=== PATIENT | male | born 1970 | race Caucasian/White ===

== ENCOUNTER 2017-08-02 08:36 | Emergency (ER) | payer OTHER ==
--- NOTE | 2017-08-02 08:55 | ED Physician Documentation ---
PD HPI BACK INJURY - Stated complaint Stated Complaint: BACK PX - History obtained from History obtained from: Patient - History of Present Illness Location: Right, Both Type of injury: Twist. No: Fall, Blunt / blow Where injury occurred: Work Timing - onset: How many days ago (4) Timing - duration: Days (4) Timing - details: Abrupt onset, Still present, Waxing and waning (had onset of lumbar area pain with ROM after just twisting some. No fall/impact. Had had similar in May without notable injury (stood up and turned) that took 1-2 weeks to improve. Was doing okay and recurred just the few days ago.) Quality: Pain, Spasm Worsened by: Moving, Palpating (right low back) Associated symptoms: No: Fever, Weakness, Numbness, Incontinent of urine Contributing factors: No: Anticoagulated, Prior back surgery Similar symptoms before: No diagnosis Review of Systems Constitutional: denies: Fever, Chills Nose: denies: Rhinorrhea / runny nose, Congestion Throat: denies: Sore throat Respiratory: denies: Cough GI: denies: Abdominal Pain, Nausea, Vomiting, Diarrhea : denies: Dysuria, Frequency, Incontinent, Hematuria Skin: denies: Rash, Lesions Neurologic: denies: Focal weakness, Numbness PD PAST MEDICAL HISTORY - Past Medical History Past Medical History: Yes Cardiovascular: Hypertension Neuro: Headache/migraine Endocrine/Autoimmune: Type 2 diabetes Musculoskeletal: Osteoarthritis - Past Surgical History Past Surgical History: Yes Ortho: Other - Present Medications Home Medications: Ambulatory Orders Medication Instructions Recorded Confirmed Amitriptyline [Elavil] 25 mg PO DAILY 06/02/15 08/02/17 Hydrochlorothiazide 25 mg PO DAILY 06/02/15 08/02/17 Lisinopril 40 mg PO DAILY 06/02/15 08/02/17 Meloxicam [Mobic] 15 mg PO DAILY 06/02/15 08/02/17 Metformin HCl 500 mg PO BID 06/02/15 08/02/17 Ibuprofen [Motrin] 600 mg PO Q6H PRN 11/21/15 08/02/17 Dexamethasone [Decadron] 4 mg PO DAILY #5 tablet 08/02/17 Methocarbamol [Robaxin] 500 mg PO Q6H PRN #25 tablet 08/02/17 Oxycodone HCl/Acetaminophen 1 each PO Q6H PRN #20 tablet 08/02/17 [Percocet 5-325 mg Tablet] - Allergies Allergies/Adverse Reactions: Allergies Allergy/AdvReac Type Severity Reaction Status Date / Time No Known Drug Allergies Allergy Verified 11/21/15 23:11 - Social History Does the pt smoke?: No Smoking Status: Never smoker Does the pt drink ETOH?: No Does the pt have substance abuse?: No - Immunizations Immunizations are current?: Yes - POLST Patient has POLST: No PD ED PE NORMAL - Vitals Vital signs reviewed: Yes - General General: Alert and oriented X 3, Well developed/nourished, Other (appears uncomfortable and having guarded ROM of the low back. ) - Neck Neck: Supple, no meningeal sign, No bony TTP, No adenopathy - Cardiac Cardiac: RRR, No murmur - Respiratory Respiratory: Clear bilaterally - Abdomen Abdomen: Soft, Non tender - Back Back: No CVA TTP, No spinal TTP (tender lower lumbar muscles, mainly right sided with point tenderness most at iliac crest area, not so much in SI per se. ) - Derm Derm: Normal color, Warm and dry, No rash Results - Vitals Vitals: Oxygen O2 Source Room air Procedures - General procedure General procedure: Trigger point muscle injection right iliac crest area at point of most tenderness, after skin prep and using 27 G needle, using Marcaine and Kenalog. No problems with the injection. PD MEDICAL DECISION MAKING - ED course Complexity details: considered differential, d/w patient Departure - Departure Disposition: 01 Home, Self Care Clinical Impression: Lumbar pain, Spasm of back muscles Condition: Stable Record reviewed to determine appropriate education?: Yes Instructions: ED Sprain Strain Lumbar Follow-Up: [facility] [Provider Group] Prescriptions: Dexamethasone [Decadron] 4 mg PO DAILY #5 tablet Methocarbamol [Robaxin] 500 mg PO Q6H PRN #25 tablet PRN Reason: Spasms Oxycodone HCl/Acetaminophen [Percocet 5-325 mg Tablet] 1 each PO Q6H PRN #20 tablet PRN Reason: Pain Comments: Heat and gentle stretching for the low back. Continue some ibuprofen but perhaps 400-600 mg twice daily as an anti-inflammatory. Add Decadron as an anti -inflammatory steroid as well. I did do a local injection with some steroid to see if that helps more focused. Add Robaxin if needed for muscle spasms. Add oxycodone if needed for worse pain. Rest off work for couple of days. Physical treatment such as chiropractic and massage are good as well. Heat or ice whichever feels better to the low back. Follow-up with your primary care in 2-3 days. Forms: Activity restrictions Discharge Date/Time: 08/02/17 10:10
[2017-08-02] MEDS ORDERED: TRIAMCINOLONE 40 MG/ML VIAL IM STA (09:16)
[2017-08-02] MEDS ORDERED: KETOROLAC 60 MG/2 ML VIAL IM STA (09:16)
[2017-08-02] MEDS ORDERED: BUPIVACAINE 0.5% PF 30 ML VIAL SUBQ STA (09:16)
[2017-08-02] MEDS ORDERED: ACETAMINOPHEN 325 MG TABLET PO STA (09:17)
[2017-08-02 10:03] VITALS: BP 122/76
== END 2017-08-02 10:10 | disposition home or self-care (01) ==
LOC: ED 08:36
DX: M54.5 Low back pain (principal); M62.830 Muscle spasm of back; I10 Essential (primary) hypertension; E11.9 Type 2 diabetes mellitus without complications; Z79.84 Long term (current) use of oral hypoglycemic drugs
CPT/HCPCS: 20552; 96372; 99283; A9270

== ENCOUNTER 2017-11-08 09:11 | Emergency (ER) | payer OTHER ==
--- NOTE | 2017-11-08 10:09 | XRAY Report ---
EXAM: RIGHT SHOULDER RADIOGRAPHY EXAM DATE: 11/08/2017 10:03 AM. CLINICAL HISTORY: Pain. COMPARISON: None. TECHNIQUE: 3 views. FINDINGS: Bones: Normal. No fracture or bone lesion. Joints: The glenohumeral and acromioclavicular joints are anatomically aligned. Soft tissues: The included hemithorax is unremarkable. No soft tissue calcification. IMPRESSION: Negative right shoulder radiography. [facility] Referring Provider Line: [phone] SITE ID: [id number]
[2017-11-08] MEDS ORDERED: oxyCOD/ACETAMIN 5 MG/325 MG TABLET PO STA (12:05)
[2017-11-08] MEDS ORDERED: LIDOCAINE PATCH 5% TOP PRN (12:05)
[2017-11-08] MEDS ORDERED: DEXAMETHASONE 10 MG/ML VIAL PO STA (12:05)
[2017-11-08] MEDS ORDERED: CHERRY SYRUP 10 ML UDC PO ONE (12:20)
--- NOTE | 2017-11-08 12:38 | ED Physician Documentation ---
History of Present Illness - Stated complaint Stated Complaint: SHOULDER PX - Chief complaint Chief Complaint: Ext Problem - Additonal information Additional information: hx from pt 46 male [place] awoke with severe R shoulder pain rad down ulnar aspect of arm to 4th and 5th fingers no CP no fever no cough no SOA no abd pain no leg swelling no injury hx degen changes of the spine Review of Systems Constitutional: denies: Fever, Chills Cardiac: denies: Chest pain / pressure Respiratory: denies: Dyspnea, Cough GI: denies: Abdominal Pain Musculoskeletal: reports: Joint pain. denies: Extremity swelling Neurologic: denies: Focal weakness, Numbness Endocrine: denies: Easy bruising / bleeding Immunocompromised: denies: Immunocompromised PD PAST MEDICAL HISTORY - Past Medical History Past Medical History: Yes Cardiovascular: Hypertension Neuro: Headache/migraine Endocrine/Autoimmune: Type 2 diabetes Musculoskeletal: Osteoarthritis - Past Surgical History Past Surgical History: Yes Ortho: Other - Present Medications Home Medications: Ambulatory Orders Medication Instructions Recorded Confirmed Amitriptyline [Elavil] 50 mg PO DAILY PRN 06/02/15 08/02/17 Hydrochlorothiazide 25 mg PO DAILY 06/02/15 08/02/17 Lisinopril 40 mg PO DAILY 06/02/15 08/02/17 Ibuprofen [Motrin] 800 mg PO DAILY 11/21/15 08/02/17 Carisoprodol [Soma] 350 mg PO Q8H PRN #15 tablet 11/08/17 Eszopiclone [Lunesta] 1 tab PO DAILY PRN 11/08/17 Lidocaine Patch 5% [Lidoderm Patch] 1 each TOP DAILY PRN #10 patch 11/08/17 Sitagliptin Phos/Metformin HCl 1 tab PO BID 11/08/17 [Janumet 50-1,000 mg Tablet] predniSONE [Deltasone] 40 mg PO DAILY 5 Days tablet 11/08/17 - Allergies Allergies/Adverse Reactions: Allergies Allergy/AdvReac Type Severity Reaction Status Date / Time No Known Drug Allergies Allergy Verified 11/08/17 09:23 - Social History Does the pt smoke?: No Smoking Status: Never smoker Does the pt drink ETOH?: No Does the pt have substance abuse?: No - Immunizations Immunizations are current?: Yes - POLST Patient has POLST: No PD ED PE NORMAL - Vitals Vital signs reviewed: Yes - Neck Neck: No bony TTP, Other (right sided ST TTP no rash) - Cardiac Cardiac: RRR - Respiratory Respiratory: No respiratory distress, Clear bilaterally - Abdomen Abdomen: Soft, Non tender - Extremities Extremities: Other (R shoulder - no deformity, limited ext and ABD, + sensation and motro, strong radial pulse, some finger edema but rest of arm not swollen, ) Results - Vitals Vitals: Vital Signs - 24 hr 11/08/17 09:22 Temperature 36.7 C Heart Rate 87 Respiratory 18 Rate Blood Pressure 133/95 H O2 Saturation 96 Oxygen O2 Source Room air PD MEDICAL DECISION MAKING - ED course ED course: seems like cervical radiculopathy though no cause or injury to explain does not seem to be chest or abd process rad to arm PERC neg feel safe to manage pain and dc if sx persist consider MRI - pt can d/w [facility] Departure - Departure Disposition: 01 Home, Self Care Clinical Impression: Cervical radiculopathy Condition: Good Instructions: ED Cervical Radiculopathy Follow-Up: [facility] [Provider Group] Prescriptions: Carisoprodol [Soma] 350 mg PO Q8H PRN #15 tablet PRN Reason: muscle spasm Lidocaine Patch 5% [Lidoderm Patch] 1 each TOP DAILY PRN #10 patch PRN Reason: Pain predniSONE [Deltasone] 40 mg PO DAILY 5 Days tablet Comments: It sounds like this pain is due to a pinched nerve in your neck or shoulder The medications i prescribed should help ease the pain. If the symptoms persist, please follow up with your PMD at [facility] for a recheck and consideration of a MRI Return if worse
[2017-11-08 13:06] VITALS: BP 141/87
== END 2017-11-08 13:05 | disposition home or self-care (01) ==
LOC: ED 09:11
DX: M54.12 Radiculopathy, cervical region (principal); I10 Essential (primary) hypertension; E11.9 Type 2 diabetes mellitus without complications
CPT/HCPCS: 73030; 99283; A9270